=== PATIENT | male | born 1965 | race Caucasian/White ===

== ENCOUNTER → 2023-08-17 | Outpatient (CLI) | payer BC, SELFPAY ==
--- NOTE | 2023-08-17 06:52 | EKG12_ITS ---
Test Reason : PRE OP Blood Pressure : / mmHG Vent. Rate : 070 BPM Atrial Rate : 070 BPM P-R Int : 194 ms QRS Dur : 148 ms QT Int : 430 ms P-R-T Axes : 010 031 020 degrees QTc Int : 464 ms Normal sinus rhythm Right bundle branch block Abnormal ECG Confirmed by Gerardo Lagunas ([id number]), proposal editor TABBY MANZANARES ([id number]) on 08/17/2023 2:16:07 PM Referred By: Gerardo Guerrero Confirmed By:Gerardo Lagunas
--- OUTSIDE RECORDS SUMMARY | 2023-08-17 07:07 | XMS RPT_ITS | CCD ---
Author Name Unknown Address [address] [facility] [address] [facility] [address] [place] [address] Organization [facility] Care Team Providers Care Contracts Manager Name Role Phone Milagros Knox DO Unavailable Dr. Cirilo Kramer Unavailable [phone] [facility] CMA Unavailable Unavailable Jesusita Leo RN Unavailable Unavailable Unavailable Unavailable Allergies Allergy Classification Reported Allergen(s) Allergy Type Date of Onset Reaction(s) Facility (2 sources) Penicillins; Translations: [Penicillins] Allergy to substance (finding) [facility] Work Phone: (2 sources) Pollen; Translations: [Pollens] Allergy to substance (finding) [facility]; [facility] Work Phone: Medications Completed/Discontinued Medications Medication Drug Class(es) Dates Sig (Normalized) Sig (Original) clarithromycin 500 mg oral tablet (2 sources) Macrolide Antimicrobial Start: 09-01-2016 End: 09-11-2016 take 1 tablet by mouth twice daily Biaxin 500 MG Oral Tablet 1 (one) Tablet BID for 10 days Quantity: 20 {Tablet} Refills: 0 Ordered: 01-Sep-2016 Milagros Knox DO, DO, Kathleen Start : 01-Sep-2016 End : 11-Sep-2016 Inactive esomeprazole 40 mg delayed release oral capsule (2 sources) Proton Pump Inhibitor Start: 01-25-2012 End: 09-03-2015 take 1 capsule by mouth once daily NEXIUM, 40MG (Oral Capsule Delayed Release) 1 (one) Capsule DR daily for 0 days Quantity: 90 {Capsule_DR} Refills: 3 Ordered: 03-Sep-2015 Beverly Keita LPN Start : 25-Jan-2012 End : 03-Sep-2015 Discontinued inulin 200 mg / lactobacillus rhamnosus gg [id number] unt oral capsule (2 sources) Start: 12-07-2011 End: 01-25-2012 take 1 capsule by mouth twice daily [facility] (Oral Capsule) 1 Capsule bid for 0 days Quantity: 30 {Capsule} Refills: 0 Ordered: 25-Jan-2012 Keena Grayson RN Start : 07-Dec-2011 End : 25-Jan-2012 Inactive ivermectin 3 mg oral tablet (2 sources) Antiparasitic, Pediculicide Start: 03-03-2021 take 4 tablets by mouth every week Ivermectin 3 MG Oral Tablet 4 Tablet q weekly for 0 days Quantity: 16 {Tablet} Refills: 2 Ordered: 03-Mar-2021 Milagros Knox DO, DO, Kathleen Start : 03-Mar-2021 Active LORazepam 0.5 mg oral tablet (2 sources) Benzodiazepine Start: 12-27-2009 End: 01-25-2012 take 1-2 tablets by mouth every week as needed ATIVAN, 0.5MG (Oral Tablet) 1 (one) Tablet 2-3 x week prn for 0 days Quantity: 12 {Tablet} Refills: 0 Ordered: 25-Jan-2012 Keena Grayson RN Start : 27-Dec-2009 End : 25-Jan-2012 Inactive metroNIDAZOLE 500 mg oral tablet (2 sources) Nitroimidazole Antimicrobial Start: 01-27-2011 End: 02-03-2011 take 1 tablet by mouth three times daily FLAGYL, 500MG (Oral Tablet) 1 Tablet tid for 7 days Quantity: 21 {Tablet} Refills: 0 Ordered: 27-Jan-2011 Aruna Han Start : 27-Jan-2011 End : 03-Feb-2011 Inactive 24 hr niacin 500 mg / simvastatin 20 mg extended release oral tablet (2 sources) HMG-CoA Reductase Inhibitor, Nicotinic Acid Start: 04-19-2009 End: 05-27-2009 take 1 tablet by mouth once daily SIMCOR, 500-20MG (Oral Tablet Extended Release 24 Hour) 1 (one) Tablet ER 24HR Daily for 0 days Quantity: 30 {Tablet_ER_24HR} Refills: 3 Ordered: 19-Apr-2009 Keena Grayson RN Start : 19-Apr-2009 End : 27-May-2009 Inactive omeprazole 20 mg delayed release oral tablet (2 sources) Proton Pump Inhibitor PRILOSEC OTC, 20MG (PO Tablet Delayed Release) (20 MG) Inactive RABEprazole sodium 20 mg delayed release oral tablet (2 sources) Proton Pump Inhibitor Start: 06-19-2010 End: 06-19-2010 ACIPHEX, 20MG (Oral Tablet Delayed Release) [address] qd for 0 days Quantity: 30 {Tablet_DR} Refills: 3 Ordered: 19-Jun-2010 Milagros Knox DO, DO, Kathleen Start : 19-Jun-2010 End : 19-Jun-2010 Discontinued Comments: not effective - pt paying extra for nexium Problems Active Problems Problem Classification Problem Date Documented Da te Episodic/Chronic Anxiety disorders (8 sources) Anxiety; Translations: [Anxiety] 07-13-2019 Chronic Past or Other Problems Problem Classification Problem Date Documented Da te Episodic/Chronic Blindness and vision defects (2 sources) Visual disturbance; Translations: [Unspecified visual disturbance] Resolved: 07-17-2009 10-31-2015 Episodic Other upper respiratory disease (2 sources) Allergic rhinitis; Translations: [Allergic rhinitis] Resolved: 07-17-2009 10-31-2015 Chronic Other upper respiratory infections (2 sources) Acute sinusitis; Translations: [Sinusitis, acute] Resolved: 07-17-2009 10-31-2015 Episodic Unclassified (4 sources) Unspecified Diagnosis 01-30-2021 Unclassified (1 source) BMI 32.0-32.9,adult Unclassified (2 sources) Flu-like symptoms Unclassified (2 sources) Former smoker Unclassified (2 sources) BMI 29.0-29.9,adult Unclassified (1 source) Sinusitis, bacterial Unclassified (1 source) Muscle twitching Results Test Name Value Interpretation Reference Range Facil ity Vital Signs Date Time Vital Sign Value Performing Clinician Facility 07-13-2019 07:16-0500 Body height 172.72 cm [facility]; [facility] Work Phone: 07-13-2019 07:16-0500 Body mass index (BMI) [Ratio] 32.58 kg/m2 [facility]; [facility] Work Phone: 07-13-2019 07:16-0500 Body surface area Derived from formula 2.1 m2 [facility] 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 [facility]; [facility] Work Phone: 07-13-2019 07:16-0500 Body temperature 95 [degF] [facility] 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 [facility]; [facility] Work Phone: Encounters Encounter Date Encounter Type Care Provider Facility Start: 01-30-2021 End: 01-30-2021 Phone Encounter Milagros Abilio DO Work Phone: [facility] Start: 07-13-2019 End: 07-13-2019 Office outpatient visit 15 minutes Milagros Abilio DO Work Phone: [facility] Start: 09-01-2016 End: 09-01-2016 Office outpatient visit 15 minutes Milagros Abilio DO Work Phone: [facility] Start: 06-04-2016 End: 06-04-2016 Patient encounter procedure Milagros Abilio DO Work Phone: [facility] Start: 06-03-2016 End: 06-03-2016 Patient encounter procedure Milagros Abilio DO Work Phone: [facility] Start: 05-11-2016 End: 05-11-2016 Phone Encounter Milagros Abilio DO Work Phone: [facility] Start: 05-06-2016 End: 05-06-2016 Office outpatient visit 25 minutes Milagros Abilio DO Work Phone: [facility] Start: 10-31-2015 End: 10-31-2015 Office outpatient visit 15 minutes Milagros Abilio DO Work Phone: [facility] Start: 09-03-2015 End: 09-04-2015 Office outpatient visit 40 minutes Milagros Abilio DO Work Phone: [facility] Start: 01-25-2012 End: 01-25-2012 Patient encounter procedure Milagros Abilio DO Work Phone: [facility] Start: 12-07-2011 End: 12-07-2011 Phone Encounter Milagros Abilio DO Work Phone: [facility] Start: 01-27-2011 End: 01-27-2011 Office outpatient visit 25 minutes Milagros Abilio DO Work Phone: [facility] Start: 06-19-2010 End: 06-19-2010 Patient encounter procedure Milagros Abilio DO Work Phone: [facility] Start: 12-27-2009 End: 12-27-2009 Patient encounter procedure Milagros Abilio DO Work Phone: [facility] Start: 10-23-2009 End: 10-23-2009 Phone Encounter Milagros Abilio DO Work Phone: [facility] Start: 07-17-2009 End: 07-17-2009 Patient encounter procedure Milagros Abilio DO Work Phone: [facility] Start: 05-27-2009 End: 05-27-2009 Historical Summary Milagros Abilio DO Work Phone: [facility] Start: 04-19-2009 End: 04-19-2009 Patient encounter procedure Milagros Abilio DO Work Phone: [facility] Start: 11-15-2006 End: 11-15-2006 Office outpatient visit 25 minutes Milagros Abilio DO Work Phone: [facility] Start: 11-11-2006 End: 11-11-2006 Historical Summary Milagros Abilio DO Work Phone: [facility] Procedures Date Procedure Procedure Detail Performing Clinician Start: 09-19-2015 End: 09-19-2015 Liver Comments: See Note; NOTES: [facility] Imaging Services [address] [place] [id number] [address] 4d Liver MR#: [id number] Acct: [id number] Name: RIOALEXANDREA Lucinda CRUZ Rep #: [id number] : 1965 M 50 From: Arvin Atwood MD PCP: Milagros Knox DO Status: REG CLI Study: Liver Date of Exam: 09/19/15 Exam# [id number] Ordering Dr: Milagros Knox DO STUDY: ABDOMINAL ULTRASOUND - RIGHT UPPER QUADRANT REASON FOR VISIT: Male, 50 years old. Hepatomegaly. TECHNIQUE: Ultrasound evaluation of the right upper quadrant was performed with real-time and static lassiter-scale imaging. TECHNICAL QUALITY: Adequate. COMPARISON: None. FINDINGS: Liver: The liver measures 15.7 cm. There is increased echogenicity consistent with fatty infiltration. The bile ducts are within normal limits. There is hepatic color flow. The direction of portal flow is hepatopetal. There is no demonstrated mass lesion. Gallbladder: Normal distended gallbladder. The gallbladder wall measures 1.0 mm. There is a negative sonographic Mercado's sign. There is no pericholecystic fluid. There are no gallstones. Common Bile Duct (C.B.D.): The common bile duct measures 4.9 mm. Pancreas: Normal size of the head, body and tail of the pancreas. There is normal echogenicity of the pancreas. There is no demonstrated pancreatic mass or cyst. Right Kidney: Normal size of the right kidney. The right kidney measures 11.0 cm x 4.8 cm x 4.9 cm. Normal renal cortex. The right cortex measures 1.6 cm. There is no demonstrated renal mass or cyst. There is no right hydronephrosis. IMPRESSION: Fatty infiltration of the liver. Electronically Signed: Arvin Atwood MD at 11:15 EDT Tel [phone], Service support [phone], CC: Milagros Knox DO Heat Treat Inspector: Signed Milagros Knox DO Work Phone: Start: 09-03-2015 End: 09-03-2015 Ecg routine ecg w/least 12 lds w/i&r [MEASUREMENTS ANALYSIS] Date of Test: 09/03/2015 08:35:26; Heart Rate: 72; FL Interval: 186; QRS: 92; QT Interval: 356; Corrected QT Interval (QTc): 377; P Wave Tangent: 36; QRS Wave Tangent: 39; T Wave Tangent: 53; Blood Pressure: 118/62 [ECG DIAGNOSTIC STATEMENTS] Date of Test: 09/03/2015 08:35:26; Summary: Sinus Rhythm WITHIN NORMAL LIMITS Milagros Knox DO Work Phone: Plan of Treatment Date Care Activity Detail Author Start: 07-13-2019 Procedure Education Eprescribed prescriptions (G8553) [facility]; [facility] Work Phone: Start: 07-13-2019 Iadna respiratry probe & rev trnscr 06-07 target Respiratory Virus Profile (RVP), pcr (24677) [facility]; [facility] Work Phone: Start: 09-01-2016 Procedure Education Eprescribed prescriptions (G8553) [facility]; [facility] Work Phone: Start: 09-01-2016 Provider Instructions for Treatment Follow up if no improvement or if symptoms worsen [facility]; [facility] Work Phone: Start: 09-01-2016 Iaadiadoo influenza Rapid Flu (00163 x 2) [facility] Work Phone: Start: 06-04-2016 Lipid panel Lipid Panel (46361) [facility]; [facility] Work Phone: Start: 06-03-2016 Hepatic function panel HEPATIC FUNCTION PANEL (37731) [facility]; [facility] Work Phone: Start: 06-03-2016 Lipid panel Lipid Panel (34871) [facility]; [facility] Work Phone: Start: 10-31-2015 Procedure Education Eprescribed prescriptions (G8553) [facility]; [facility] Work Phone: Start: 10-31-2015 Provider Instructions for Treatment [facility]; [facility] Work Phone: Start: 10-31-2015 Lipid panel LIPID PANEL (76259) [facility]; [facility] Work Phone: Start: 10-31-2015 Hepatic function panel HEPATIC FUNCTION PANEL (43688) [facility]; [facility] Work Phone: Start: 09-03-2015 Provider Instructions for Treatment [facility]; [facility] Work Phone: Start: 01-25-2012 Patient Education Anxiety: anxiety [facility]; [facility] Work Phone: Start: 01-25-2012 Provider Instructions for Treatment [facility]; [facility] Work Phone: Start: 01-27-2011 Provider Instructions for Treatment [facility]; [facility] Work Phone: Start: 01-27-2011 Blood occult peroxidase actv qual feces 1 deter OCCULT BLOOD FECES SCREEN (95108) [facility]; [facility] Work Phone: Start: 01-27-2011 Ova&parasites direct smears concentration & id OVA & PARASITE DIR SMEAR (72511) [facility]; [facility] Work Phone: Start: 01-27-2011 Cul bact stool aerobic isol salmonella&shigell JOSEPH CULTURE-STOOL (24182) [facility]; [facility] Work Phone: Start: 01-27-2011 Culture bacterial any source anaerobic iso&id C-DIFFICILE, STOOL (00170) [facility]; [facility] Work Phone: Start: 01-27-2011 Leukocyte assmt fecal qual/semiquantitative LEUKOCYTE COUNT, FECAL (57370) [facility]; [facility] Work Phone: Start: 12-17-2010 Lipid panel LIPID PANEL (84626) [facility]; [facility] Work Phone: Start: 06-19-2010 Provider Instructions for Treatment [facility]; [facility] Work Phone: Start: 12-27-2009 Provider Instructions for Treatment [facility]; [facility] Work Phone: Start: 07-17-2009 Provider Instructions for Treatment [facility]; [facility] Work Phone: Start: 07-17-2009 Lipid panel LIPID PANEL (81775) [facility] Work Phone: Start: 04-19-2009 Lipid panel LIPID PANEL (75491) [facility]; [facility] Work Phone: Payers Date Payer Category Payer Policy ID Unknown [employer]/BS Social History Date Type Detail Facility Alcohol Use Alcohol Use [facility] Work Phone: Instructions Note Date & Type Note Facility [facility]; [facility] Work Phone: Instructions Note Date & Type Note Facility [facility]; [facility] Work Phone: Additional Source Comments FOR RECORDS PERTAINING TO PATIENTS WHO ARE OR HAVE BEEN ENROLLED IN A CHEMICAL DEPENDENCY/SUBSTANCEABUSE PROGRAM, SOME INFORMATION MAY BE OMITTED. This clinical summary was aggregated from multiple sources. Caution should be exercised in using it in the provision of clinical care. This summary normalizes information from multiple sources, and as a consequence, information in this document may materially change the coding, format and clinical context of patient data. In addition, data may be omitted in some cases. CLINICAL DECISIONS SHOULD BE BASED ON THE PRIMARY CLINICAL RECORDS. [facility] [employer] provides no warranty or guarantee of the accuracy or completeness of information in this document.
[2023-08-17 08:19] LABS: Hematocrit 47.1 % (40-54); Hemoglobin 15.9 g/dL (13.0-16.5); Mean Corp Hgb Conc 33.8 g/dL (32-36); Mean Corpuscular Hgb 31.1 pg (27.0-32.0); Mean Platelet Vol. 10.2 fl (6.2-12.0); Platelet Count 167 K/mm3 (150-450); RBC Distribution Width CV 13.4 % (11.6-14.6); RBC Distribution Width SD 45.6 fl (35.1-43.9); Red Blood Count 5.12 M/mm3 (4.6-6.2); White Blood Count 6.2 K/mm3 (4.4-11.0)
[2023-08-17 08:52] LABS: Anion Gap 5 (5-15); BUN 14 mg/dL (7-18); BUN/Creat Ratio 16.1 RATIO (10-20); Calcium,Total 10.6 mg/dL (8.5-10.1); Chloride 106 mmol/L (98-107); Creatinine, Serum 0.87 mg/dL (0.70-1.30); EST Glomerular Filtration Rate 95 mL/min (>60); Est Glom Filt Rate - Afr Amer 115 mL/min (>60); Glucose 93 mg/dL (74-106); Potassium 4.1 mmol/L (3.5-5.1); Sodium Level 139 mmol/L (136-145)
== END | disposition home or self-care (01) ==
PROVIDERS: PCP Internal Medicine; Referring Provider Orthopaedic Surgery; Visit Provider Orthopaedic Surgery
DX: Z01.818 Encounter for other preprocedural examination (principal); Z01.810 Encounter for preprocedural cardiovascular examination
CPT/HCPCS: 36415; 80048; 85027; 93005